=== PATIENT | male | born 1970 | race Caucasian/White ===

== ENCOUNTER → 2020-05-05 | Outpatient (CLI) | payer SELFPAY ==
[~2020-05-05] MED LIST: FENO134C PO; LISI10TA16 PO; OMEG-33 PO
[2020-05-08 12:35] VITALS: BP 117/76
== END ==
LOC: LAB 13:00
PROVIDERS: ATTEND Nurse Anesthetist, Certified Registered
DX: Z01.812 Encounter for preprocedural laboratory examination (principal); H26.9 Unspecified cataract; Z20.822 Contact with and (suspected) exposure to COVID-19
CPT/HCPCS: C9803; U0003

== ENCOUNTER → 2020-05-08 | Day surgery (SDC) | payer BC ==
[~2020-05-08] MED LIST changes: +IPRATRPIUM/ALBUTEROL 0.5/2.5MG 3 ML NEBU. NEB PRN; +IV RINGERS SOLUTION,LACTATED 1,000 ML IV SCH; +LIDOCAINE 2% PF 5 ML VIAL. ONE; +MIDAZOLAM HCL PF 2 MG/2 ML VIAL. IV ONE; +ONDANSETRON PF 4 MG/2 ML VIAL. IV PRN; +PROPOFOL 10,000 MCG/ML (20ML) VIAL IV ONE
[2020-05-08 12:35] VITALS: BP 117/76
--- NOTE | 2020-05-13 15:08 | PATHOLOGY ---
[facility] Accession Number: [id number] . 01 Material submitted: . PART A: gastrointestinal site - ANTRUM BIOPSY PART B: sigmoid colon - SIGMOID POLYP BIOPSY PART C: rectum - RECTAL POLYP HOT SNARE . 01 Clinical history: . + COLOGUARD . 02 Diagnosis: A. Gastric biopsies, antrum: - Chronic gastritis, mild, with focal erosion and acute inflammation. . B. Colon biopsy, sigmoid polyp: - Tubular adenoma. . C. Colorectal biopsies, rectal polyp x2: - Tubular adenoma (1). - Hyperplastic polyp (1). (JPM:vernell; 05/13/2020) S 05/13/2020 1358 Local . 02 Comment: Sections of the gastric biopsy reveal gastric antral/body transition mucosa showing congestion, focal edema, and mild chronic inflammation with focal mucosal erosion and acute inflammation. A properly controlled immunoperoxidase stain for Helicobacter is negative for Helicobacter organisms. . Sections of the sigmoid colon biopsy reveal a tubular adenoma showing no high grade dysplasia or evidence of malignancy. . Sections of the rectal biopsies reveal a single tubular adenoma and a single hyperplastic polyp. There is no high grade dysplasia or evidence of malignancy. (JPM:vernell; 05/13/2020) . Special stain performed: Immunoperoxidase stain for Helicobacter on A1 . 02 Electronically signed: . Poncho Schrader MD, Pathologist NPI- [id number] . 01 Gross description: . A. The specimen is received in formalin, labeled "Alejandro Yao, biopsy antrum" and consists of 2 fragments of pink-hutson tissue measuring 0.4 x 0.3 cm and 0.5 x 0.2 cm which are entirely submitted in A1. . B. The specimen is received in formalin, labeled "Maximilian, Alejandro, sigmoid polyp" and consists of a segment of hutson tissue measuring 0.6 x 0.3 cm which is entirely submitted in B1. . C. The specimen is received in formalin, labeled "Maximilian, Alejandro, rectal polyp x2" and consists of 2 segments of pink-hutson tissue measuring 0.6 x 0.4 cm and 0.7 x 0.5 x 0.3 cm. The larger is inked and bisected and they are entirely submitted in C1. (SDY; 05/12/2020) SYU/SYU 05/12/2020 1221 Local . 02 Pathologist provided ICD-10: K29.50, K29.00, K25.9, D12.5, D12.8, K62.1 . 02 CPT . 501795, [id number], [id number], [id number] Specimen Comment: Report sent to / Performed at: 01 [facility] [address], [place], [place] [id number] MD Kemar Saravia MD Phone: [phone] Performed at: 02 [facility] [address], [place] [id number] MD Poncho Schrader MD Phone: [phone]
== END | disposition home or self-care (01) ==
LOC: SURG 10:02
PROVIDERS: ATTEND Internal Medicine Gastroenterology
DX: R19.5 Other fecal abnormalities (principal); R13.10 Dysphagia, unspecified; R12 Heartburn; K64.8 Other hemorrhoids; K57.30 Diverticulosis of large intestine without perforation or abscess without bleeding; D12.5 Benign neoplasm of sigmoid colon; K63.89 Other specified diseases of intestine; K29.50 Unspecified chronic gastritis without bleeding; K21.00 Gastro-esophageal reflux disease with esophagitis, without bleeding; D12.8 Benign neoplasm of rectum; K25.9 Gastric ulcer, unspecified as acute or chronic, without hemorrhage or perforation; Z88.8 Allergy status to other drugs, medicaments and biological substances; Z79.899 Other long term (current) drug therapy; Z72.89 Other problems related to lifestyle
CPT/HCPCS: 43239; 45380; 45385; 88305; 88342; J2001; J2704; J7120